=== PATIENT | male | born 1990 | race Caucasian/White ===

== ENCOUNTER 2024-06-22 04:28 | Emergency (ER) | payer SELFPAY ==
[2024-06-22 05:07] LABS: BASOPHILS ABSOLUTE AUTO 0.03 K/uL (0.00-0.20); BASOPHILS PERCENT AUTO 0.2 % (0.0-1.0); EOSINOPHILS ABSOLUTE AUTO 0.04 K/uL (0.00-0.45); EOSINOPHILS PERCENT AUTO 0.2 % (0.0-6.0); HEMATOCRIT 50.4 % (42.0-52.0); HEMOGLOBIN 17.1 g/dL (14.0-18.0); IMMATURE GRAN ABSOLUTE AUTO 0.08 K/uL (0.00-0.05); IMMATURE GRAN PERCENT AUTO 0.4 % (0.0-0.4); LYMPHOCYTES PERCENT AUTO 4.2 % (24.0-44.0); MEAN CORPUSCULAR HEMOGLOBIN 30.4 pg (28.0-32.0); MEAN CORPUSCULAR HGB CONC 33.9 g/dL (32.0-36.0); MEAN CORPUSCULAR VOLUME 89.7 fL (83.0-99.0); MEAN PLATELET VOLUME 10.4 fL (9.4-12.4); MONOCYTES ABSOLUTE AUTO 1.53 K/uL (0.00-0.80); MONOCYTES PERCENT AUTO 8.1 % (0.0-8.0); NEUTROPHILS ABSOLUTE AUTO 16.46 K/uL (1.80-7.70); NEUTROPHILS PERCENT AUTO 86.9 % (41.0-71.0); PLATELET COUNT,PLT 132 K/uL (150-400); RED BLOOD CELL COUNT 5.62 M/uL (4.52-5.90); WHITE BLOOD CELL COUNT,WBC 18.94 K/uL (3.9-11.3)
[2024-06-22] MEDS: Sodium Chloride 0.9% 1,000 ML IV ONE (05:18)
[2024-06-22] MEDS: Ondansetron 4 MG/2 ML SDV IVPUSH ONE (05:19)
[2024-06-22 05:32] LABS: A/G RATIO 1.5 (0.9-1.6); ALBUMIN 4.7 g/dL (3.4-5.0); BILIRUBIN TOTAL 1.4 mg/dL (0.2-1.0); CALCIUM 9.2 mg/dL (8.5-10.1); CARBON DIOXIDE,CO2 26.7 mmol/L (21.0-32.0); CREATININE 1.1 mg/dL (0.8-1.3); EST CRCL DRUG DOSING (CG) 100.78 mL/min; PROTEIN TOTAL,TP 7.9 g/dL (6.4-8.2)
== END 2024-06-22 06:21 | disposition home or self-care (01) ==
LOC: MW.ED 04:28
DX: R11.2 Nausea with vomiting, unspecified (principal); R19.7 Diarrhea, unspecified
CPT/HCPCS: 36415; 80053; 83690; 85025; 96361; 96374; 99284; J2405; J7030; 99283